=== PATIENT | male | born 1965 | race Caucasian/White ===

== ENCOUNTER 2016-05-08 18:58 | Emergency (ER) | payer OTHER ==
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
[2016-05-08 22:25] VITALS: BP 129/80; PULSE 97; RESP 20; TEMP 98.6; O2SAT 98
== END 2016-05-08 22:25 | disposition home or self-care (01) ==
DX: S09.90XA Unspecified injury of head, initial encounter (principal); S00.81XA Abrasion of other part of head, initial encounter; D32.9 Benign neoplasm of meninges, unspecified; V47.5XXA Car driver injured in collision with fixed or stationary object in traffic accident, initial encounter; Y92.410 Unspecified street and highway as the place of occurrence of the external cause; Y99.8 Other external cause status; Y93.89 Activity, other specified